=== PATIENT | female | born 1980 | race Caucasian/White ===

== ENCOUNTER 2021-10-21 22:07 | Inpatient (IN) | payer OTHER ==
[~2021-10-21] VITALS: Ht 160 cm; Wt 52.2 kg
[2021-10-22 00:01] LABS: HEMOGLOBIN 10.4 gm/dl (12.3-15.3); RED BLOOD COUNT 4.05 M/UL (4.00-5.10); WHITE BLOOD COUNT 7.1 K/UL (4.5-11.0)
[2021-10-22] MEDS ORDERED: BUPRENORPHIN-N1 EACH SL (13:20)
[2021-10-22] MEDS ORDERED: VRAYLAR1.5 MG PO (13:21)
[2021-10-22] MEDS ORDERED: BENZONATATE100 MG PO (13:21)
[2021-10-22] MEDS ORDERED: CLONIDINE HCL0.1 MG PO (13:22)
[2021-10-22] MEDS ORDERED: CYCLOBENZAPRINE10 MG PO (13:22)
[2021-10-22] MEDS ORDERED: DICYCLOMINE HCL10 MG PO (13:23)
[2021-10-22] MEDS ORDERED: DOCUSATE SODIU100 MG PO (13:24)
[2021-10-22] MEDS ORDERED: FUROSEMIDE40 MG PO (13:24)
[2021-10-22] MEDS ORDERED: IBU400 MG PO (13:25)
[2021-10-22] MEDS ORDERED: VISTARIL 50 MG50 MG PO (13:25)
[2021-10-22] MEDS ORDERED: METFORMIN HCL500 MG PO (13:26)
[2021-10-22] MEDS ORDERED: MELATONIN5 M2 PO (13:26)
[2021-10-22] MEDS ORDERED: DAILY-VITE TA400 MCG PO (13:27)
[2021-10-22] MEDS ORDERED: POTASSIUM CHLO20 ME1 PO (13:28)
[2021-10-22] MEDS ORDERED: ZOFRAN ODT 4 MG4 MG SL (13:28)
[2021-10-22] MEDS ORDERED: BACTRIM DS TAB1 EACH PO (13:29)
[2021-10-22] MEDS ORDERED: LIPITOR40 MG PO (13:29)
[2021-10-22] MEDS ORDERED: ASPIRIN EC81 MG PO (13:29)
[2021-10-22] MEDS ORDERED: METOPROLOL SUCC25 MG PO (13:30)
[2021-10-22] MEDS ORDERED: DOXYCYCLINE HY100 MG PO (13:30)
[2021-10-22] MEDS ORDERED: PROAIR DIGIHAL90 MCG INH (13:31)
[2021-10-22] MEDS ORDERED: SYMBICORT 80-41 INHA INH (13:31)
[2021-10-22] MEDS ORDERED: DAILY VALUE1 EACH PO (13:32)
[2021-10-22] MEDS ORDERED: TYLENOL EXTRA500 MG PO (13:33)
[2021-10-22] MEDS ORDERED: IMODIUM CAP 2 MG2 MG PO (13:33)
[2021-10-22] MEDS ORDERED: LACTULOSE10 GM/15 M PO (13:34)
[2021-10-22] MEDS ORDERED: MAGNESIUM CITR296 ML PO (13:35)
[2021-10-23 04:26] LABS: HEMOGLOBIN 9.8 gm/dl (12.3-15.3); RED BLOOD COUNT 3.76 M/UL (4.00-5.10); WHITE BLOOD COUNT 5.7 K/UL (4.5-11.0)
[2021-10-24] MEDS ORDERED: DOXYCYCLINE HY100 M2 PO ×2 (14:06→14:19)
[2021-10-24] MEDS ORDERED: DEX4 GLUCOSE4 GM PO (14:06)
== END 2021-10-24 18:06 | disposition home or self-care (01) | DRG 683 ==
LOC: ER1 22:07 → CDU 10-22 03:28 → MED SURG 4 10-22 03:28
PROVIDERS: Internal Medicine; Physician Assistant Medical; Student in an Organized Health Care Education/Training Program; ADMIT Internal Medicine
DX: N17.9 Acute kidney failure, unspecified (principal); L03.116 Cellulitis of left lower limb; L03.115 Cellulitis of right lower limb; I42.8 Other cardiomyopathies; E86.0 Dehydration; Z20.822 Contact with and (suspected) exposure to COVID-19; E87.5 Hyperkalemia; E11.649 Type 2 diabetes mellitus with hypoglycemia without coma; R00.2 Palpitations; F19.10 Other psychoactive substance abuse, uncomplicated; I11.0 Hypertensive heart disease with heart failure; I50.9 Heart failure, unspecified; E78.5 Hyperlipidemia, unspecified; F15.10 Other stimulant abuse, uncomplicated; I95.9 Hypotension, unspecified; F17.210 Nicotine dependence, cigarettes, uncomplicated; Z79.01 Long term (current) use of anticoagulants; Z79.82 Long term (current) use of aspirin; Z79.899 Other long term (current) drug therapy; Z88.0 Allergy status to penicillin; Z87.442 Personal history of urinary calculi; Z95.810 Presence of automatic (implantable) cardiac defibrillator; Z90.49 Acquired absence of other specified parts of digestive tract; Z88.8 Allergy status to other drugs, medicaments and biological substances; Z82.49 Family history of ischemic heart disease and other diseases of the circulatory system; Z98.51 Tubal ligation status
CPT/HCPCS: 36415; 71045; 80048; 80053; 80307; 81001; 82550; 82553; 82962; 83036; 83605; 83690; 83735; 83874; 83880; 84439; 84443; 84484; 85025; 85027; 85610; 87040; 93005; 94640; 94664; 94760; 96365; 96375; 99285; J0610; J1644; J2550; Q0177; U0002

== ENCOUNTER 2021-10-29 14:39 | Emergency (ER) | payer OTHER ==
[~2021-10-29 14:39] MED LIST: ASPIRIN EC81 MG PO; BACTRIM DS TAB1 EACH PO; BENZONATATE100 MG PO; BUPRENORPHIN-N1 EACH SL; CLONIDINE HCL0.1 MG PO; CYCLOBENZAPRINE10 MG PO; DAILY VALUE1 EACH PO; DAILY-VITE TA400 MCG PO; DEX4 GLUCOSE4 GM PO; DICYCLOMINE HCL10 MG PO; DOCUSATE SODIU100 MG PO; DOXYCYCLINE HY100 M2 PO; DOXYCYCLINE HY100 MG PO; FUROSEMIDE40 MG PO; IBU400 MG PO; IMODIUM CAP 2 MG2 MG PO; LACTULOSE10 GM/15 M PO; LIPITOR40 MG PO; MAGNESIUM CITR296 ML PO; MELATONIN5 M2 PO; METFORMIN HCL500 MG PO; METOPROLOL SUCC25 MG PO; POTASSIUM CHLO20 ME1 PO; PROAIR DIGIHAL90 MCG INH; SYMBICORT 80-41 INHA INH; TYLENOL EXTRA500 MG PO; VISTARIL 50 MG50 MG PO; VRAYLAR1.5 MG PO; ZOFRAN ODT 4 MG4 MG SL
[2021-10-29 17:14] LABS: HEMOGLOBIN 10.4 gm/dl (12.3-15.3); RED BLOOD COUNT 3.98 M/UL (4.00-5.10); WHITE BLOOD COUNT 5.5 K/UL (4.5-11.0)
== END 2021-10-29 21:00 | disposition home or self-care (01) ==
LOC: ER1 14:39
PROVIDERS: Physician Assistant
DX: R18.8 Other ascites (principal); K59.00 Constipation, unspecified; J90 Pleural effusion, not elsewhere classified; E11.9 Type 2 diabetes mellitus without complications; I10 Essential (primary) hypertension; Z87.442 Personal history of urinary calculi; Z79.82 Long term (current) use of aspirin; Z88.0 Allergy status to penicillin; Z88.5 Allergy status to narcotic agent; Z91.013 Allergy to seafood
CPT/HCPCS: 71045; 80053; 81001; 82150; 82550; 82553; 83690; 83874; 83880; 84484; 85025; 93005; 96374; 96376; 99285; J1940; Q9967

== ENCOUNTER → 2021-11-29 | Outpatient (CLI) | payer OTHER ==
[~2021-11-29] MED LIST changes: +DECADRON6 MG PO; +FERROUS SULFAT325 M2 PO; +LISINOPRIL5 MG PO; +SYMBICORT 160-1 INHA INH; -SYMBICORT 80-41 INHA INH
== END ==
LOC: RAD 15:24
DX: M25.531 Pain in right wrist (principal); M25.532 Pain in left wrist; R22.31 Localized swelling, mass and lump, right upper limb; R22.32 Localized swelling, mass and lump, left upper limb
CPT/HCPCS: 73110